=== PATIENT | male | born 1995 | race Caucasian/White ===

== ENCOUNTER 2020-07-03 16:10 | Emergency (ER) | payer MEDICAID ==
[~2020-07-03] VITALS: Ht 165.1 cm; Wt 63.6 kg
[2020-07-03 16:13] VITALS: BP 121/63
[2020-07-03] MEDS ORDERED: LIDOcaine 1% 30ml preserv. free vial IJ ONE (16:50)
== END 2020-07-03 18:54 | disposition home or self-care (01) ==
LOC: ER 16:11
DX: S01.21XA Laceration without foreign body of nose, initial encounter (principal); W45.8XXA Other foreign body or object entering through skin, initial encounter; Y93.89 Activity, other specified; Y92.89 Other specified places as the place of occurrence of the external cause; Y99.8 Other external cause status
CPT/HCPCS: 12013; 99282